=== PATIENT | female | born 1955 | race Caucasian/White ===

== ENCOUNTER 2018-03-01 00:03 | Emergency (ER) | payer OTHER ==
[~2018-03-01] VITALS: Ht 165.1 cm; Wt 90.7 kg
[2018-03-01] MEDS ORDERED: CRESTOR10 M1 PO (01:35)
[2018-03-01] MEDS ORDERED: KEFLEX500 M1 PO (01:41)
[2018-03-01] MEDS ORDERED: PYRIDIUM100 M1 PO (01:41)
--- NOTE | 2018-03-01 01:44 | ED GENERAL ADULT ---
History of Present Illness General Chief Complaint: Female Urogenital Problems Stated Complaint: ?UTI PAINFUL URINATION Source: patient Exam Limitations: no limitations Vital Signs & Intake/Output Vital Signs & Intake/Output ED Intake and Output 03/02 0000 03/01 1200 Intake Total Output Total Balance Patient 200 lb Weight Allergies Coded Allergies: No Known Allergies (03/01/18) Reconcile Medications Cephalexin (Keflex) 500 MG CAPSULE 1 CAP PO BID UTI Phenazopyridine HCl (Pyridium) 100 MG TABLET 1 TAB PO TID UTI Rosuvastatin Calcium (Crestor) 10 MG TABLET 1 TAB PO DAILY HIGH CHOLESTROL ( Reported) Triage Note: PT REPORTS HAVING PAIN AND BLOOD IN URINE, DENIES FEVERS AND CHILLS. Triage Nurses Notes Reviewed? yes Onset: Gradual Duration: day(s): Timing: constant HPI: 62 y/o female with a h/o HLD and depression presenting with dysuria, hematuria, and urinary frequency/urgency over the past 1-2 days. Feels like similar UTI's she's had in the past. Denies feves, nausea, vomiting, abd pain, back pain, or vaginal discharge. (Patti Hardy) Past History Travel History Traveled to [place] past 21 day No Medical History Any Pertinent Medical History? see below for history Neurological: NONE EENT: allergies Cardiovascular: hyperlipidemia Respiratory: NONE Gastrointestinal: NONE Hepatic: NONE Renal: NONE Musculoskeletal: NONE Psychiatric: depression Endocrine: NONE Blood Disorders: NONE Cancer(s): NONE Surgical History Surgical History: non-contributory Psychosocial History What is your primary language Martiniquais Tobacco Use: Never used ETOH Use: denies use Illicit Drug Use: denies illicit drug use Family History Hx Contributory? No (Patti Hardy) Review of Systems Review of Systems Constitutional: Reports: no symptoms. EENTM: Reports: no symptoms. Respiratory: Reports: no symptoms. Cardiovascular: Reports: no symptoms. GI: Reports: no symptoms. Genitourinary: Reports: see HPI. Musculoskeletal: Reports: no symptoms. Skin: Reports: no symptoms. Neurological/Psychological: Reports: no symptoms. Hematologic/Endocrine: Reports: no symptoms. Immunologic/Allergic: Reports: no symptoms. All Other Systems: Reviewed and Negative (Patti Hardy) Physical Exam Physical Exam General Appearance: well developed/nourished, no apparent distress, alert, awake , comfortable Head: atraumatic, normal appearance Eyes: Bilateral: normal appearance. Neck: normal inspection Respiratory: normal breath sounds, lungs clear Cardiovascular: regular rate/rhythm Gastrointestinal: soft, non-tender Back: normal inspection, No CVA tenderness Extremities: normal inspection Neurologic/Psych: awake, alert, oriented x 3, normal gait, normal mood/affect Skin: intact, normal color, warm/dry Core Measures ACS in differential dx? No CVA/TIA Diagnosis: No Sepsis Present: No Sepsis Focused Exam Completed? No (Patti Hardy) Progress Differential Diagnoses I considered the following diagnoses in my evaluation of the patient: [UTI, low concern for pyelo vs cervicitis vs PID] Plan of Care: Orders Procedure Date/time Status CULTURE,URINE 03/01 7 Active URINALYSIS 03/01 7 Complete Current Medications Sig/Georgina Start time Last Medication Dose Stop Time Status Admin Cephalexin 500 MG ONCE ONE 03/01 145 UNVr (Keflex 500MG Cap) 03/01 146 Phenazopyridine HCl 100 MG ONCE ONE 03/01 145 UNVr (Pyridium) 03/01 146 Laboratory Tests 03/01/18 0020: Urine Color YEL, Urine Clarity HAZY H, Urine pH 6.5, Ur Specific [place] <= 1.005, Urine Protein 30 H, Urine Ketones NEG, Urine Nitrite NEG, Urine Bilirubin NEG, Urine Urobilinogen 0.2, Ur Leukocyte Esterase LARGE H, Ur Microscopic SEDIMENT EXAMINED, Urine RBC 15-25 H, Urine WBC 10-15 H, Ur Epithelial Cells MOD H, Urine Bacteria FEW H, Urine Mucus FEW, Urine Hemoglobin LARGE H, Urine Glucose NEG Microbiology 03/01 20 URINE ROUT: Urine Culture - RECD UA concerning for infection, urine cx sent, covered with keflex and given pyridium. Counseled on supportive care and strict return precautions. Initial ED EKG: none (Patti Hardy) Departure Departure Disposition: HOME OR SELF CARE Condition: Stable Clinical Impression Primary Impression: UTI (urinary tract infection) Referrals: Patient Has No Primary Care Dr (PCP/Family) Additional Instructions: Take Keflex and Pyridium as prescribed. Follow-up with your primary care provider for reevaluation. Return to the emergency department for any normal worsening symptoms. Departure Forms: Customer Survey General Discharge Information Prescriptions: Current Visit Scripts Cephalexin (Keflex) 1 CAP PO BID #20 CAP Phenazopyridine HCl (Pyridium) 1 TAB PO TID #6 TAB (Patti Hardy) PA/LOT ATTENDANT Co-Sign Statement Statement: ED Attending supervision documentation- x I saw and evaluated the patient. I have also reviewed all the pertinent lab results and diagnostic results. I agree with the findings and the plan of care as documented in the PA's/LOT ATTENDANT's documentation. [] I have reviewed the ED Record and agree with the PA's/LOT ATTENDANT's documentation. [] Additions or exceptions (if any) to the PAs/LOT ATTENDANT's note and plan are summarized below: [] (Gena NEWELL,Ramon) Critical Care Note Critical Care Note Critical Care Time: non-applicable (Patti Hardy)
[2018-03-01 01:47] VITALS: BP 151/93
== END 2018-03-01 02:04 ==
LOC: ERH 00:03
DX: N39.0 Urinary tract infection, site not specified (principal)
CPT/HCPCS: 81001; 87086